=== PATIENT | male | born 1960 | race Caucasian/White ===

== ENCOUNTER 2017-02-03 12:04 | Emergency (ER) | payer OTHER ==
[2017-02-03 12:42] LABS: BASOPHILS % (AUTO) 0.3 %; EOSINOPHILS # (AUTO) 0.2 10^3/uL (0.0-0.7); EOSINOPHILS % (AUTO) 1.6 %; HCT - HEMATOCRIT 46.7 % (42.0-52.0); HGB - HEMOGLOBIN 15.8 g/dL (14.0-18.0); LYMPHOCYTES # (AUTO) 1.9 10^3/uL (1.5-3.5); LYMPHOCYTES % (AUTO) 19.2 %; MEAN CORPUSCULAR HEMOGLOBIN 28.4 pg (27.0-31.0); MEAN CORPUSCULAR HGB CONC 33.8 g/dL (32.0-36.0); MEAN CORPUSCULAR VOLUME 84.1 fL (80.0-94.0); MEAN PLATELET VOLUME 8.8 fL (7.4-11.4); MONOCYTES # (AUTO) 0.7 10^3/uL (0.0-1.0); MONOCYTES % (AUTO) 6.8 %; NEUTROPHILS # (AUTO) 7.3 10^3/uL (1.5-6.6); NEUTROPHILS % (AUTO) 72.1 %; RED BLOOD COUNT 5.55 10^6/uL (4.70-6.10); RED CELL DISTRIBUTION WIDTH 13.7 % (12.0-15.0); UNCORRECTED WHITE BLOOD COUNT 10.1 x10^3/uL; WHITE BLOOD COUNT 10.1 x10^3/uL (4.8-10.8)
[2017-02-03 12:52] LABS: ALBUMIN/GLOBULIN RATIO 1.4 (1.0-2.2); BILIRUBIN,TOTAL 1.2 mg/dL (0.2-1.0); POTASSIUM 3.8 mmol/L (3.5-5.0)
[2017-02-03] MEDS ORDERED: ASPIRIN CHEW 81 MG TABLET PO STA (12:58)
[2017-02-03] MEDS ORDERED: LIDOCAINE VISCOUS 2% 15 ML UDC MM STA (12:58)
[2017-02-03] MEDS ORDERED: MAG HYDROX/AL HYDROX/SIMETH 30 ML UDC PO STA (12:58)
[2017-02-03] MEDS ORDERED: LIDOCAINE VISCOUS 2% 15 ML UDC MM ONE (13:01)
[2017-02-03] MEDS ORDERED: MAG HYDROX/AL HYDROX/SIMETH 30 ML UDC ONE (13:01)
[2017-02-03] MEDS ORDERED: ASPIRIN CHEW 81 MG TABLET ONE (13:01)
--- NOTE | 2017-02-03 13:04 | ED Physician Documentation ---
PD HPI CHEST PAIN - Stated complaint Stated Complaint: CHEST PX - Chief complaint Chief Complaint: Cardiac - History obtained from History obtained from: Patient - History of Present Illness Timing - onset: Other (56-year-old gentleman with history of severe erosive esophagitis and hiatal hernia but no heart or lung disease presents with substernal burning chest pressure starting at 9 a.m. similar to prior episodes of GERD. It is not radiate but he has been sweaty a little nauseous with it. Somewhat atypically it did not resolve with Pepto-Bismol which usually helps with similar episodes. It is not exertional or positional. No pedal edema, calf pain, hemoptysis, recent travel.) Review of Systems Ten Systems: 10 systems reviewed and negative Constitutional: denies: Fever, Chills Nose: denies: Rhinorrhea / runny nose, Congestion GI: reports: Nausea. denies: Vomiting, Diarrhea : denies: Dysuria Musculoskeletal: denies: Neck pain PD PAST MEDICAL HISTORY - Past Medical History Cardiovascular: None Respiratory: None Endocrine/Autoimmune: None GI: GERD : None HEENT: None Psych: None Musculoskeletal: Osteoarthritis Derm: Rosacea - Past Surgical History Past Surgical History: Yes - Present Medications Home Medications: Ambulatory Orders Medication Instructions Recorded Confirmed Aspirin 650 mg PO DAILY 05/23/16 05/23/16 Calcium Carbonate [Tums (Calcium 1,000 mg PO ONCE 05/23/16 05/23/16 Carbonate 500mg)] raNITIdine [Zantac] 150 mg PO DAILY 05/23/16 05/23/16 - Allergies Allergies/Adverse Reactions: Allergies Allergy/AdvReac Type Severity Reaction Status Date / Time No Known Drug Allergies Allergy Verified 05/23/16 14:31 - Social History Does the pt smoke?: No Smoking Status: Former smoker Does the pt drink ETOH?: No Does the pt have substance abuse?: No - Family History Family history: reports: Non contributory - Immunizations Immunizations are current?: Yes PD ED PE NORMAL - Vitals Vital signs reviewed: Yes - General General: Alert and oriented X 3, No acute distress - HEENT HEENT: PERRL, EOMI - Neck Neck: Supple, no meningeal sign, No bony TTP - Cardiac Cardiac: RRR, No murmur - Respiratory Respiratory: No respiratory distress, Clear bilaterally - Abdomen Abdomen: Soft, Non tender - Back Back: No CVA TTP, No spinal TTP - Derm Derm: Normal color, Warm and dry - Extremities Extremities: No edema, No calf tenderness / cord - Neuro Neuro: Alert and oriented X 3, Normal speech - Psych Psych: Normal mood, Normal affect Results - Vitals Vitals: Vital Signs - 24 hr 02/03/17 02/03/17 02/03/17 12:06 13:38 15:10 Temperature 36.6 C Heart Rate 54 L 47 L 77 Respiratory 16 20 17 Rate Blood Pressure 124/82 H 113/79 129/89 H O2 Saturation 99 100 98 02/03/17 02/03/17 16:26 18:20 Temperature Heart Rate 81 68 Respiratory 16 14 Rate Blood Pressure 113/77 111/84 H O2 Saturation 97 97 Oxygen O2 Source Room air - EKG (time done) 1216 Rate: Rate (enter#) (48) Rhythm: Sinus bradycardia [place]: Normal Intervals: Normal OR QRS: Normal Ischemia: Normal ST segments Computer interpretation: Agree with computer - Labs Labs: Laboratory Tests 02/03/17 02/03/17 02/03/17 12:25 12:25 12:25 WBC 10.1 RBC 5.55 Hgb 15.8 Hct 46.7 MCV 84.1 MCH 28.4 MCHC 33.8 RDW 13.7 Plt Count 177 MPV 8.8 Neut # 7.3 H Lymph # 1.9 [place] # 0.7 Eos # 0.2 Baso # 0.0 Absolute Nucleated RBC 0.00 Nucleated RBCs 0.0 Sodium 138 Potassium 3.8 Chloride 105 Carbon Dioxide 27 Anion Gap 6.0 BUN 13 Creatinine 1.0 Estimated GFR (MDRD) 78 L Glucose 113 H Calcium 9.0 Total Bilirubin 1.2 H AST 38 ALT 32 Alkaline Phosphatase 71 Troponin I < 0.04 Total Protein 7.0 Albumin 4.1 Globulin 2.9 Albumin/Globulin Ratio 1.4 Lipase 24 02/03/17 02/03/17 14:33 16:57 WBC RBC Hgb Hct MCV MCH MCHC RDW Plt Count MPV Neut # Lymph # [place] # Eos # Baso # Absolute Nucleated RBC Nucleated RBCs Sodium Potassium Chloride Carbon Dioxide Anion Gap BUN Creatinine Estimated GFR (MDRD) Glucose Calcium Total Bilirubin AST ALT Alkaline Phosphatase Troponin I < 0.04 < 0.04 Total Protein Albumin Globulin Albumin/Globulin Ratio Lipase - Rads (name of study) 1v chest Radiology: See rad report (cardiomegaly, nad) CT Angio Chest/abd Radiology: EMP read contemporaneously (Negative) RUQ sono Radiology: EMP read contemporaneously (Mild gallbladder wall thickening without stones, fatty liver) PD MEDICAL DECISION MAKING - ED course ED course: 56-year-old gentleman with substernal chest pain reminiscent of prior GERD, he does have known significant hiatal hernia and history of esophagitis. Initial workup showed a nonischemic EKG and negative troponin. He had no relief with a GI cocktail. Troponin was repeated after 2 hours and was still undetectable. On reevaluation at that point I noted that he has a marfanoid body habitus with arachnodactyly and he is hyperflexible, the pain is atypical for dissection but this is still concerning of course. The angiograms were negative, his pain did finally resolve, he had an equivocal call right upper quadrant ultrasound but he was pain-free at that juncture. A light diet and followup for a HIDA scan were recommended. Departure - Departure Disposition: 01 Home, Self Care Clinical Impression: Thickening of wall of gallbladder Chest pain Qualifiers: Chest pain type: unspecified Qualified Code(s): R07.9 - Chest pain, unspecified Abdominal pain Qualifiers: Abdominal location: upper abdomen, unspecified Qualified Code(s): R10.10 - Upper abdominal pain, unspecified Condition: Good Record reviewed to determine appropriate education?: Yes Instructions: ED Diet Low Fat, ED Chest Pain Atypical Unkn Cause Comments: Return if pain recurs or for other new symptoms. Follow up with Dr. Sawant and discuss a HIDA scan, especially if you're having recurrent symptoms.
--- NOTE | 2017-02-03 13:45 | XRAY Preliminary Report ---
Exam: XR Chest 1 View IMPRESSION: Cardiomegaly, but no evidence of acute cardiopulmonary disease. [facility] SITE ID: [id number]
--- NOTE | 2017-02-03 13:47 | XRAY Report ---
EXAM: CHEST RADIOGRAPHY EXAM DATE: 02/03/2017 01:21 PM. CLINICAL HISTORY: Chest pain. COMPARISON: None. TECHNIQUE: 1 view. FINDINGS: Lungs/Pleura: Minimal linear scarring or atelectasis at the left base. No focal infiltrate, effusion, or pneumothorax. Mediastinum: Cardiomegaly. Other: None. IMPRESSION: Cardiomegaly, but no evidence of acute cardiopulmonary disease. [facility] Referring Provider Line: [phone] SITE ID: [id number]
[2017-02-03] MEDS ORDERED: IOPAMIDOL-300 100 ML VIAL IVP ONE (16:00)
--- NOTE | 2017-02-03 16:20 | CT Preliminary Report ---
Exam: CT Chest Angio (AORTA) IMPRESSION: No evidence of aortic dissection or aneurysm. No acute cardiopulmonary disease. [facility] SITE ID: [id number]
--- NOTE | 2017-02-03 16:23 | CT Report ---
EXAM: CT ANGIOGRAM CHEST EXAM DATE: 02/03/2017 04:05 PM. CLINICAL HISTORY: IV only, chest pain, marfanoid. COMPARISON: None. TECHNIQUE: Routine helical imaging was performed through the chest in the arterial phase. IV Contrast : 100 mL Isovue 300. Reconstructions: Coronal and sagittal 3-D MIP reconstructions.Sagittal and coron al. In accordance with CT protocol optimization, one or more of the following dose reduction techniques w ere utilized for this exam: automated exposure control, adjustment of mA and/or KV based on patient s ize, or use of iterative reconstructive technique. FINDINGS: Lungs/Pleura: Minimal dependent atelectasis. No effusion or pneumothorax. Mediastinum: Normal. No cardiac enlargement or adenopathy. Thoracic Aorta: Unremarkable. No aneurysm or dissection. Upper Abdomen: Please see separate CT. Other: None. IMPRESSION: No evidence of aortic dissection or aneurysm. No acute cardiopulmonary disease. [facility] Referring Provider Line: [phone] SITE ID: [id number]
--- NOTE | 2017-02-03 16:24 | CT Preliminary Report ---
Exam: CT Abdomen/Pelvis Angio IMPRESSION: Normal abdomen and pelvis CT angiogram. No aneurysm or dissection. [facility] SITE ID: [id number]
--- NOTE | 2017-02-03 16:26 | CT Report ---
EXAM: CT ANGIOGRAM ABDOMEN AND PELVIS WITH CONTRAST EXAM DATE: 02/03/2017 04:04 PM. CLINICAL HISTORY: IV only, chest pain, marfanoid. COMPARISONS: None. TECHNIQUE: Routine helical CT angiogram imaging was performed through the abdomen and pelvis in the a rterial phase. IV contrast: 100 mL Isovue-370. Enteric contrast: No. Reconstructions: Coronal, sagitt al, and 3D MIP reconstructions. In accordance with CT protocol optimization, one or more of the following dose reduction techniques w ere utilized for this exam: automated exposure control, adjustment of mA and/or KV based on patient s ize, or use of iterative reconstructive technique. FINDINGS: Vasculature: Normal. No aneurysm, dissection, or significant atherosclerotic disease of the abdominal aorta and iliac arteries. The visualized mesenteric and solid organ vascular structures are also wit hin normal limits. Lung Bases: Minimal atelectasis. Abdominal Solid Organs: Small cyst in the anterior liver. The spleen, pancreas, kidneys and adrenal g lands are unremarkable, allowing for phase of contrast enhancement. Peritoneal Cavity: Normal. No free fluid, free air, or acute inflammatory process. Pelvic Organs: Normal. The bladder and visualized pelvic organs are within normal limits. Bones: Degenerative changes. Other: None. IMPRESSION: Normal abdomen and pelvis CT angiogram. No aneurysm or dissection. [facility] Referring Provider Line: [phone] SITE ID: [id number]
[2017-02-03] MEDS ORDERED: CALCIUM CARBONATE CHEW 500 MG TABLET PO STA (17:00)
[2017-02-03] MEDS ORDERED: CALCIUM CARBONATE CHEW 500 MG TABLET ONE (17:01)
[2017-02-03 18:20] VITALS: BP 111/84
--- NOTE | 2017-02-03 18:32 | Ultrasound Preliminary Report ---
Exam: US Abdomen Limited IMPRESSION: 1. Mild circumferential gallbladder wall thickening without gallstones. Equivocal sonographic Hung sign. Chronic or early acute cholecystitis is not excluded. Correlate clinically. 2. Mildly fatty infiltrated liver. No mass. Liver cyst. 3. Normal common bile duct. 4. Pancreas obscured by bowel gas. [facility] SITE ID: [id number]
--- NOTE | 2017-02-03 19:05 | Ultrasound Report ---
EXAM: ABDOMEN ULTRASOUND LIMITED, RUQ EXAM DATE: 02/03/2017 06:01 PM. CLINICAL HISTORY: Abdominal pain. COMPARISON: 02/03/2017 CT angiogram of the chest, abdomen and pelvis. TECHNIQUE: Real-time scanning was performed with static images obtained. FINDINGS: Liver: Echogenic liver parenchyma. No mass or intrahepatic bile duct dilation. 1.4 cm left liver cyst . No concerning features. Right liver measures 17.6 cm. Main portal vein flow: Hepatopetal. Gallbladder: Circumferential gallbladder wall thickening. No stones. Equivocal sonographic Hung sig n. Biliary System: CBD measures 4.3 mm. No intrahepatic or extrahepatic ductal dilatation. Pancreas: Not well-seen. Right kidney: No hydronephrosis. Length measures 10.2 cm. Other: Study limited body body habitus. IMPRESSION: 1. Mild circumferential gallbladder wall thickening without gallstones. Equivocal sonographic Hung sign. Chronic or early acute cholecystitis is not excluded. Correlate clinically. 2. Mildly fatty infiltrated liver. No mass. Liver cyst. 3. Normal common bile duct. 4. Pancreas obscured by bowel gas. [facility] Referring Provider Line: [phone] SITE ID: [id number]
== END 2017-02-03 18:48 | disposition home or self-care (01) ==
LOC: ED 12:04
DX: K82.8 Other specified diseases of gallbladder (principal); R07.89 Other chest pain; R10.10 Upper abdominal pain, unspecified; K21.0 Gastro-esophageal reflux disease with esophagitis; K44.9 Diaphragmatic hernia without obstruction or gangrene; I51.7 Cardiomegaly; R00.1 Bradycardia, unspecified; Q87.43 Marfan syndrome with skeletal manifestation; Z87.891 Personal history of nicotine dependence
CPT/HCPCS: 36415; 71010; 71275; 74174; 76705; 80053; 83690; 84484; 85025; 93005; 93010; 99284; 99285; A9270; Q9967

== ENCOUNTER 2018-08-11 08:00 | Outpatient (CLI) | payer OTHER ==
[2018-08-11 12:55] LABS: BASOPHILS % (AUTO) 0.5 %; EOSINOPHILS # (AUTO) 0.2 10^3/uL (0.0-0.7); EOSINOPHILS % (AUTO) 2.7 %; HGB - HEMOGLOBIN 15.4 g/dL (14.0-18.0); LYMPHOCYTES # (AUTO) 1.7 10^3/uL (1.5-3.5); LYMPHOCYTES % (AUTO) 30.3 %; MEAN CORPUSCULAR HEMOGLOBIN 29.7 pg (27.0-31.0); MEAN CORPUSCULAR HGB CONC 34.7 g/dL (32.0-36.0); MEAN CORPUSCULAR VOLUME 85.6 fL (80.0-94.0); MEAN PLATELET VOLUME 9.6 fL (7.4-11.4); MONOCYTES # (AUTO) 0.5 10^3/uL (0.0-1.0); MONOCYTES % (AUTO) 8.4 %; NEUTROPHILS # (AUTO) 3.3 10^3/uL (1.5-6.6); NEUTROPHILS % (AUTO) 58.1 %; PLT - PLATELET COUNT 181 10^3/uL (130-450); RED BLOOD COUNT 5.17 10^6/uL (4.70-6.10); RED CELL DISTRIBUTION WIDTH 13.4 % (12.0-15.0); WHITE BLOOD COUNT 5.7 x10^3/uL (4.8-10.8)
[2018-08-11 13:48] LABS: ALBUMIN 4.2 g/dL (3.2-5.5); ALBUMIN/GLOBULIN RATIO 2.1 (1.0-2.2); ALKALINE PHOSPHATASE 70 IU/L (42-121); ALT ALANINE AMINOTRANSFERASE 21 IU/L (10-60); AST ASPARTATE AMINOTRANSFERASE 19 IU/L (10-42); BILIRUBIN,TOTAL 0.9 mg/dL (0.2-1.0); BUN - BLOOD UREA NITROGEN 13 mg/dL (6-20); CALCIUM 8.8 mg/dL (8.5-10.3); CARBON DIOXIDE - CO2 24 mmol/L (21-32); CHLORIDE 106 mmol/L (101-111); CHOL/HDL RATIO 4.5 (<5.0); CHOLESTEROL 205 mg/dL; GFR - MDRD 78 (>89); GLUCOSE 96 mg/dL (70-100); HDL CHOLESTEROL 46 mg/dL; LDL CHOLESTEROL,CALCULATED 148 mg/dL; LDL/HDL RATIO 3.2 (<3.6); SODIUM 136 mmol/L (135-145); TOTAL PROTEIN 6.2 g/dL (6.7-8.2); VLDL CHOLESTEROL 11 mg/dL
== END 2018-08-11 23:59 | disposition home or self-care (01) ==
LOC: LAB.WCP 08:00
PROVIDERS: ATTEND Family Medicine
DX: Z00.00 Encounter for general adult medical examination without abnormal findings (principal)
CPT/HCPCS: 36415; 80053; 80061; 83721; 84443; 85025

== ENCOUNTER 2018-08-14 08:00 | Outpatient (CLI) | payer OTHER | END 2018-08-14 23:59 | disposition home or self-care (01) | LOC: LAB.WCP 08:00 | PROVIDERS: ATTEND Family Medicine | DX: Z12.5 Encounter for screening for malignant neoplasm of prostate (principal) | CPT/HCPCS: 36415; 84153 ==

== ENCOUNTER 2018-12-16 07:23 | Day surgery (SDC) | payer OTHER ==
[~2018-12-16 07:23] MED LIST: BUPIVACAINE 0.25% PF 10 ML VIAL ONE; LIDOCAINE 1%-EPI 1:100000 30 ML MDV ONE
[2018-12-16] MEDS ORDERED: LACTATED RINGERS 1,000 ML IV ONE (07:28)
[2018-12-16] MEDS ORDERED: ceFAZolin 2 GM/50 ML 2 GM/50 ML BAG IV ONE (07:32)
--- NOTE | 2018-12-16 08:11 | ANESTHESIA ---
Pre-Anesthesia VS, & Labs - Diagnosis right cubital tunnel syndrome - Procedure right cubital tunnel syndrome Vital Signs: Temp Pulse Resp BP Pulse Ox 36.1 C L 76 16 136/78 H 97 12/16/18 07:42 12/16/18 07:42 12/16/18 07:42 12/16/18 07:42 12/16/18 07:42 Height 6 ft 4 in Weight (kg) 99 kg Body Mass Index 27.3 - NPO >8 hours Home Medications and Allergies Home Medications: Ambulatory Orders Acetaminophen [Tylenol] 650 mg PO Q6H PRN 12/10/18 Dexlansoprazole [Dexilant] 60 mg PO DAILY 12/10/18 Calcium Carbonate [Tums (Calcium Carbonate 500mg)] 1,000 mg PO ONCE 05/23/16 Acetaminophen [Tylenol] 650 mg PO Q6H PRN 12/10/18 Dexlansoprazole [Dexilant] 60 mg PO DAILY 12/10/18 Allergies/Adverse Reactions: Allergies Allergy/AdvReac Type Severity Reaction Status Date / Time omeprazole Allergy severe Verified 12/16/18 07:42 headaches Anes History & Medical History - Anesthetic History Anesthesia Complications: reports: No previous complications - Medical History Cardiovascular: reports: None Pulmonary: reports: None Gastrointestinal: reports: GERD, Hiatal hernia Urinary: reports: None Musculoskeletal: reports: Osteoarthritis Endocrine/Autoimmune: reports: None Skin: reports: Rosacea Smoking Status: Former smoker - Surgical History General: Colonoscopy, EGD Eyes Ears Nose Throat (EENT): Tonsil/Adenoidectomy Urologic: Testicular surgery Exam General: Alert Dental: WNL Mouth Opening: Greater than 4 Fingerbreadths Neck Mobility: Normal Mallampati classification: II Respiratory: Lungs clear Cardiovascular: Regular rate Plan Anesthesia Type: General Consent for Procedure(s) Verified and Reviewed: Yes Code Status: Attempt Resuscitation ASA classification: 2-Mild systemic disease Is this case an emergency?: No
[2018-12-16] MEDS ORDERED: LIDOCAINE 1%-EPI 1:100000 30 ML MDV SUBQ ONE ×2 (09:13)
[2018-12-16] MEDS ORDERED: BUPIVACAINE 0.25% PF 30 ML VIAL SUBQ ONE ×2 (09:13)
[2018-12-16] MEDS ORDERED: ACETAMINOPHEN 1,000 MG/100 ML 100 ML IV ONE (09:49)
[2018-12-16] MEDS ORDERED: DEXAMETHASONE 4 MG/ML VIAL IVP ONE (09:49)
[2018-12-16] MEDS ORDERED: PROPOFOL 200 MG/20 ML VIAL IVP ONE (09:49)
[2018-12-16] MEDS ORDERED: LIDOCAINE-PF 2% 10 ML AMP SUBQ ONE (09:49)
[2018-12-16] MEDS ORDERED: MIDAZOLAM 2 MG/2 ML VIAL IVP ONE (09:49)
[2018-12-16] MEDS ORDERED: ONDANSETRON 4 MG/2 ML VIAL IVP ONE (09:49)
[2018-12-16] MEDS ORDERED: fentaNYL 100 MCG/2 ML VIAL IVP ONE (09:49)
[2018-12-16] MEDS ORDERED: KETOROLAC 30 MG/ML VIAL IVP ONE (09:49)
[2018-12-16] MEDS ORDERED: oxyCODONE 5 MG TABLET PO PRN (10:11)
[2018-12-16] MEDS ORDERED: oxyCODONE 5 MG TABLET ONE (10:52)
[2018-12-16 11:18] VITALS: BP 111/88
--- NOTE | 2018-12-16 14:00 | OPERATIVE REPORT ---
DATE OF SERVICE: 12/16/2018 Physician: Kristen Arreola MD PREOPERATIVE DIAGNOSIS: Right cubital tunnel syndrome. POSTOPERATIVE DIAGNOSIS: Right cubital tunnel syndrome. PROCEDURE PERFORMED: Right ulnar nerve subcutaneous transposition. SURGEON: Kristen Arreola MD. ANESTHESIA: General by Whitley Obrien CRNA INDICATIONS FOR SURGERY: Patient is a 58-year-old male with a remote history of elbow injury and fra cture, and more recently, having the onset over the last couple of years of cubital tunnel syndrome i n that same arm. He has failed nonoperative management and recommendation is made for subcutaneous t ransposition. FINDINGS AT SURGERY: Patient's nerve was found to have a definite constriction around the cubital tu nnel, and there was hypersensitivity of the nerve. Upon transposition, the patient's nerve had a smo oth pathway that was spacious enough and no kinking in the nerve or constriction. DESCRIPTION OF OPERATIVE PROCEDURE: The patient was taken to the operating room and was given a gene ral anesthetic. He was supine. He was rolled up slightly with a bolster under his left arm to allow him to lie more comfortably with his arm extended out, tourniquet high on the arm, elbow was shaved and prepped in standard fashion. Surgical timeout was held. A 2-1/2 inch incision was marked directly over the medial epicondyle after this was infiltrated with a combination of 0.25% Marcaine with epinephrine and 1% lidocaine plain. Following this, an incision was made through skin only and a careful dissection made down to the common flexor origin at the med ial epicondyle. Behind this area, careful spreading was done proximal to the cubital tunnel and the ulnar nerve was encountered and carefully handled by placing a vessel loop around it, dissecting prox imally to ensure there was no entrapment up into the intermuscular septum, and then dissecting distal down to the epicondyle, ensuring there was an adequate pathway anteriorly for positioning of the ner ve. The nerve was freed up from behind the elbow and placed anteriorly, and dissection carried out distal ly to ensure there was no kinking of the nerve as it re-entered the forearm musculature with a slight fascial release to avoid this kinking effect in flexion. All branches distally were preserved, and the nerve and wound were irrigated thoroughly. At the conclusion, a small flap of fat was tacked daniel n from the anterior exposure to prevent resubluxation of the nerve posteriorly. Multiple Vicryl sutu res were positioned in this, and this left a position for the nerve and for my small finger to pass t hrough. Subcutaneous tissue was then closed with interrupted 3-0 Vicryl and the skin with Monocryl i n a running subcuticular fashion. The wound was sterilely dressed with Xeroform, 4 x 4's and abundan t cast padding, placing a posterior arm splint with the elbow at 90 degrees. Patient was then taken to recovery room in stable condition. ESTIMATED BLOOD LOSS FOR THE PROCEDURE: Minimal. COMPLICATIONS: None. COUNTS: Sponge and needle counts correct. TD: 12/16/2018 11:54
== END 2018-12-16 07:24 | disposition home or self-care (01) ==
LOC: SDS 07:23
PROVIDERS: ATTEND Orthopaedic Surgery
PROC: 01S40ZZ Reposition Ulnar Nerve, Open Approach (ICD-10-PCS; principal; 2018-12-16 08:30)
DX: G56.21 Lesion of ulnar nerve, right upper limb (principal); K21.9 Gastro-esophageal reflux disease without esophagitis; K44.9 Diaphragmatic hernia without obstruction or gangrene; Z87.891 Personal history of nicotine dependence; M17.0 Bilateral primary osteoarthritis of knee; Z87.81 Personal history of (healed) traumatic fracture
CPT/HCPCS: 64718; A9270; J0131; J0690; J7120

== ENCOUNTER 2019-01-18 18:36 | Emergency (ER) | payer OTHER ==
[2019-01-18] MEDS ORDERED: BUPIVACAINE 0.5% PF 10 ML VIAL SUBQ STA (19:09)
--- NOTE | 2019-01-18 19:13 | XRAY Report ---
Reason: saw vs middle finger Procedure Date: 01/18/2019 Accession Number: [id number] / [id number] Procedure: XR - Finger(s) LT CPT Code: FULL RESULT: EXAM: LEFT THIRD DIGIT RADIOGRAPHY EXAM DATE: 01/18/2019 07:08 PM. CLINICAL HISTORY: Saw vs middle finger. COMPARISON: None. TECHNIQUE: 3 views. FINDINGS: Bones: There is comminuted fracture through the tip of the third distal phalanx. Joints: Normal. No subluxations. Soft Tissues: Normal. No soft tissue swelling. IMPRESSION: Comminuted fracture through the tip of the third distal phalanx. No unexpected radiopaque foreign body. [facility]
[2019-01-18] MEDS ORDERED: TETANUS/DIPHTHERIA/PERTUSSIS 0.5 ML SYRINGE IM ONE (20:22)
[2019-01-18] MEDS ORDERED: ceFAZolin 1 GM VIAL IM STA (20:22)
[2019-01-18] MEDS ORDERED: BACITRACIN OINT TOP ONE (20:27)
--- NOTE | 2019-01-18 20:27 | ED Physician Documentation ---
PD HPI UPPER EXT INJURY - Stated complaint Stated Complaint: LT HAND INJ - Chief complaint Chief Complaint: Laceration - History obtained from History obtained from: Patient - History of Present Illness Location: Left, Finger (3rd digit) Type of injury: Laceration (circular saw) Where injury occurred: Home Timing - onset: How many hours ago (1) Timing - duration: Hours (1) Timing - details: Abrupt onset Pain level max: 8 Pain level now: 8 Improved by: Rest, Ice, Immobilization Worsened by: Moving, Palpating Associated symptoms: No: Weakness, Numbness, Tingling Contributing factors: No: Anticoagulated Recently seen: Not recently seen - Additonal information Additional information: unknown last Td. pt is right handed Review of Systems Constitutional: denies: Fever, Chills Throat: denies: Sore throat Cardiac: denies: Chest pain / pressure Respiratory: denies: Cough GI: denies: Abdominal Pain, Nausea, Vomiting, Diarrhea Skin: denies: Rash Musculoskeletal: denies: Neck pain, Back pain Neurologic: denies: Headache PD PAST MEDICAL HISTORY - Past Medical History Cardiovascular: None Respiratory: None Endocrine/Autoimmune: None GI: GERD, Hiatal hernia : None HEENT: Chronic vision loss, Other Psych: None Musculoskeletal: Osteoarthritis Derm: Rosacea - Past Surgical History Past Surgical History: Yes General: Colonoscopy, EGD HEENT: Tonsil/Adenoidectomy - Present Medications Home Medications: Ambulatory Orders Medication Instructions Recorded Confirmed Calcium Carbonate [Tums (Calcium 1,000 mg PO ONCE 05/23/16 12/16/18 Carbonate 500mg)] Acetaminophen [Tylenol] 650 mg PO Q6H PRN 12/10/18 12/16/18 Dexlansoprazole [Dexilant] 60 mg PO DAILY 12/10/18 12/16/18 Cephalexin [Keflex] 500 mg PO Q6H #28 capsule 01/18/19 Hydrocodone/Acetaminophen 1 - 2 each PO Q6H PRN #10 tablet 01/18/19 [Hydrocodon-Acetaminophen 5-325] - Allergies Allergies/Adverse Reactions: Allergies Allergy/AdvReac Type Severity Reaction Status Date / Time omeprazole Allergy severe Verified 12/16/18 07:42 headaches - Social History Does the pt smoke?: No Smoking Status: Former smoker Does the pt drink ETOH?: No Does the pt have substance abuse?: No - Immunizations Immunizations are current?: Yes PD ED PE NORMAL - Vitals Vital signs reviewed: Yes - General General: Alert and oriented X 3, No acute distress - HEENT HEENT: Moist mucous membranes - Derm Derm: Warm and dry - Extremities Extremities: Other (L 3rd digit, Deep flap laceration to the pad of the left third digit. Distal phalanx. Neurovascular intact. Nail intact) - Neuro Neuro: Alert and oriented X 3 Results - Vitals Vitals: Vital Signs - 24 hr 01/18/19 01/18/19 18:38 20:52 Temperature 36.3 C L Heart Rate 74 78 Respiratory 18 18 Rate Blood Pressure 146/102 H 137/78 H O2 Saturation 96 99 Oxygen O2 Source Room air - Rads (name of study) L finger xray Radiology: Prelim report reviewed, EMP read contemporaneously, See rad report (Comminuted fracture through the tip of the third distal phalanx. No unexpected radiopaque foreign body. ) Procedures - Laceration (location) L 3rd digit Length in cm: 2 Wound type: Curved, Stellate, Irregular, Flap, Into subcut fat, Contaminated Neurovascular status: Sensory intact, Motor intact, Vascular intact Tendon involvement: Tendon intact Anesthesia: Lidocaine 2% Wound Preparation: Irrigated copiously NS (500ml), Wound explored, To the base. No: FB identified, FB removed Skin layer closure: Nylon, Interrupted, Size #-0 - enter number (4) Other: Patient tolerated well, No complications, Neurovascular intact, Tetanus booster given (tdap) Complexity: Simple PD MEDICAL DECISION MAKING - ED course Complexity details: reviewed results, re-evaluated patient, considered differential, d/w patient ED course: 58-year-old male with an open distal tuft fracture from a circular saw. Irrigated very well, closed with sutures. Given Ancef IM. Will place on Keflex for home. We will have him follow-up with orthopedics for wound checks. Patient counseled regarding signs and symptoms for which I believe and urgent re-evaluation would be necessary. Patient with good understanding of and agreement to plan and is comfortable going home at this time This document was made in part using voice recognition software. While efforts are made to proofread this document, sound alike and grammatical errors may occur. No nerve or tendon injury Departure - Departure Disposition: 01 Home, Self Care Clinical Impression: Laceration of left index finger Qualifiers: Encounter type: initial encounter Damage to nail status: without damage Foreign body presence: without foreign body Qualified Code(s): S61.211A - Laceration without foreign body of left index finger without damage to nail, initial encounter Fracture, finger, distal phalanx, open Qualifiers: Encounter type: initial encounter Finger: middle finger Fracture alignment: displaced Laterality: left Qualified Code(s): S62.633B - Displaced fracture of distal phalanx of left middle finger, initial encounter for open fracture Condition: Good Instructions: ED Fx Finger Open, ED Laceration Hand Follow-Up: Rebel Sawant MD [Primary Care Provider] - [facility] [Provider Group] - Within 1 week Prescriptions: Cephalexin [Keflex] 500 mg PO Q6H #28 capsule Hydrocodone/Acetaminophen [Hydrocodon-Acetaminophen 5-325] 1 - 2 each PO Q6H PRN #10 tablet PRN Reason: pain Comments: Return if you worsen. Follow-up with your doctor closely for further care. You should follow-up with orthopedics within the next week to ensure that this is healing correctly. Take all antibiotics until gone. Do not drink alcohol or drive while on narcotic pain medicine. Note that many narcotic pain relievers also contain tylenol/acetaminophen. Please ensure that your total dose of acetaminophen from all sources does not exceed 3 grams (3000mg) per day. You may constipated on this medication, take a stool softener such as "Colace" twice a day while you are on it. Also recommend a [id number] laxative such as senna or MiraLAX any day that you do not have a bowel movement. If you received narcotic pain medication in the emergency department, do not drive or operate machinery for the next 24 hours. Discharge Date/Time: 01/18/19 20:52
[2019-01-18 20:52] VITALS: BP 137/78
== END 2019-01-18 20:52 | disposition home or self-care (01) ==
LOC: ED 18:36
DX: S61.213A Laceration without foreign body of left middle finger without damage to nail, initial encounter (principal); S62.633A Displaced fracture of distal phalanx of left middle finger, initial encounter for closed fracture; W29.8XXA Contact with other powered hand tools and household machinery, initial encounter; Z87.891 Personal history of nicotine dependence
CPT/HCPCS: 12001; 73140; 90471; 90715; 96372; 99283; A9270

== ENCOUNTER 2021-11-08 07:44 | Outpatient (CLI) | payer OTHER ==
[2021-11-08 12:33] LABS: BASOPHILS % (AUTO) 0.5 %; EOSINOPHILS # (AUTO) 0.1 10^3/uL (0.0-0.7); EOSINOPHILS % (AUTO) 2.4 %; HCT - HEMATOCRIT 46.3 % (42.0-52.0); HGB - HEMOGLOBIN 15.4 g/dL (14.0-18.0); LYMPHOCYTES # (AUTO) 2.5 10^3/uL (1.5-3.5); LYMPHOCYTES % (AUTO) 44.3 %; MEAN CORPUSCULAR HEMOGLOBIN 28.5 pg (27.0-31.0); MEAN CORPUSCULAR HGB CONC 33.3 g/dL (32.0-36.0); MEAN CORPUSCULAR VOLUME 85.6 fL (80.0-94.0); MEAN PLATELET VOLUME 10.8 fL (7.4-11.4); MONOCYTES # (AUTO) 0.5 10^3/uL (0.0-1.0); MONOCYTES % (AUTO) 8.7 %; NEUTROPHILS # (AUTO) 2.4 10^3/uL (1.5-6.6); NEUTROPHILS % (AUTO) 43.9 %; PLT - PLATELET COUNT 193 10^3/uL (130-450); RED BLOOD COUNT 5.41 10^6/uL (4.70-6.10); WHITE BLOOD COUNT 5.5 x10^3/uL (4.8-10.8)
[2021-11-08 12:55] LABS: ALBUMIN 4.1 g/dL (3.2-5.5); ALBUMIN/GLOBULIN RATIO 1.6 (1.0-2.2); ALKALINE PHOSPHATASE 58 IU/L (42-121); ALT ALANINE AMINOTRANSFERASE 14 IU/L (10-60); AST ASPARTATE AMINOTRANSFERASE 18 IU/L (10-42); BILIRUBIN,TOTAL 0.8 mg/dL (0.2-1.0); BUN - BLOOD UREA NITROGEN 10 mg/dL (6-20); CALCIUM 9.1 mg/dL (8.5-10.3); CARBON DIOXIDE - CO2 27 mmol/L (21-32); CHLORIDE 105 mmol/L (101-111); CHOL/HDL RATIO 3.8 (<5.0); CHOLESTEROL 183 mg/dL; CREATININE 1.1 mg/dL (0.6-1.2); GFR - MDRD 69 (>89); GLUCOSE 93 mg/dL (70-100); HDL CHOLESTEROL 48 mg/dL; LDL CHOLESTEROL,CALCULATED 119 mg/dL; LDL/HDL RATIO 2.5 (<3.6); POTASSIUM 4.1 mmol/L (3.5-5.0); SODIUM 139 mmol/L (135-145); TOTAL PROTEIN 6.7 g/dL (6.7-8.2); TRIGLYCERIDES 79 mg/dL; VLDL CHOLESTEROL 16 mg/dL
[2021-11-08 13:01] LABS: THYROID STIMULATING HORMONE 1.21 uIU/mL (0.34-5.60)
== END 2021-11-08 07:45 | disposition home or self-care (01) ==
LOC: LAB.N 07:44
PROVIDERS: ATTEND Nurse Practitioner Family
DX: E78.5 Hyperlipidemia, unspecified (principal); Z13.1 Encounter for screening for diabetes mellitus; Z12.5 Encounter for screening for malignant neoplasm of prostate; Z13.29 Encounter for screening for other suspected endocrine disorder; Z13.6 Encounter for screening for cardiovascular disorders
CPT/HCPCS: 36415; 80053; 80061; 83721; 84153; 84443; 85025

== ENCOUNTER 2021-12-05 10:44 | Outpatient (CLI) | payer OTHER ==
--- NOTE | 2021-12-05 11:37 | DEXA Report ---
PROCEDURE: Dexa Spine and/or Hip INDICATIONS: SCREENING FOR OSTEOPOROSIS TECHNIQUE: Dual energy x-ray absorptiometry (DXA) was performed on a [employer] System. Regions measur ed are the AP Spine, femoral neck, and if needed forearm. COMPARISON: None. FINDINGS: Lumbar Spine: Bone Mineral Density 1.108 g/cm/cm,T score -0.9, normal Left Hip: Bone Mineral Density 0.983 g/cm/cm,T score -0.8, normal Left Femoral Neck: Bone Mineral Density 0.887 g/cm/cm, T score -1.4, osteopenia (T score greater or equal to -1.0: NORMAL) (T score from -1.1 to -2.4: OSTEOPENIA) (T score less than or equal to -2.5 to: OSTEOPOROSIS) Impression: Bone mineral density as detailed above. Patients with diagnosis of osteoporosis or osteopenia should have regular bone mineral density assess ment. For those eligible for Medicare, routine testing is allowed once every 2 years. Testing frequ ency can be increased for patients who have rapidly progressing disease or for those who are receivin g medical therapy to restore bone mass. Reviewed by: Ez Rubi MD on 12/05/2021 11:36 AM PDT Approved by: Ez Rubi MD on 12/05/2021 11:36 AM PDT Station ID: [id number]
== END 2021-12-05 10:45 | disposition home or self-care (01) ==
LOC: DI 10:44
PROVIDERS: ATTEND Nurse Practitioner Family
DX: Z13.820 Encounter for screening for osteoporosis (principal); M85.88 Other specified disorders of bone density and structure, other site; Z79.899 Other long term (current) drug therapy

== ENCOUNTER 2021-12-06 08:31 | Day surgery (SDC) | payer OTHER ==
[2021-12-06] MEDS ORDERED: fentaNYL 100 MCG/2 ML VIAL ONE (08:50)
[2021-12-06] MEDS ORDERED: MIDAZOLAM 2 MG/2 ML VIAL ONE (08:50)
[2021-12-06] MEDS ORDERED: LACTATED RINGERS 1,000 ML IV ONE ×2 (09:00→10:18)
--- NOTE | 2021-12-06 09:10 | ANESTHESIA ---
Pre-Anesthesia VS, & Labs - Diagnosis GERD - Procedure EGD Vital Signs: Temp Pulse Resp BP Pulse Ox 36.4 C L 68 18 139/84 H 96 12/06/21 08:46 12/06/21 08:46 12/06/21 08:46 12/06/21 08:46 12/06/21 08:46 Height: 6 ft 3 in Weight (kg): 101.1 kg Body Mass Index: 27.8 BMI Classification: Overweight - NPO >8 hours Home Medications and Allergies Calcium Carbonate [Tums (Calcium Carbonate 500mg)] 1,000 mg PO ONCE 05/23/16 Acetaminophen [Tylenol] 650 mg PO Q6H PRN 12/10/18 Dexlansoprazole [Dexilant] 60 mg PO DAILY 12/10/18 Omeprazole Magnesium 1 cap PO DAILY 12/05/21 Anes History & Medical History - Anesthetic History Anesthesia Complications: reports: No previous complications - Medical History Cardiovascular: reports: None Pulmonary: reports: None Gastrointestinal: reports: GERD, Hiatal hernia Urinary: reports: None Musculoskeletal: reports: Osteoarthritis Endocrine/Autoimmune: reports: None Skin: reports: Rosacea Smoking Status: Former smoker - Surgical History General: reports: Colonoscopy, EGD Eyes Ears Nose Throat (EENT): reports: Tonsil/Adenoidectomy Urologic: reports: Testicular surgery Neurologic: reports: Other Exam General: Alert, Oriented x3 Dental: WNL Mouth Opening: Greater than 4 Fingerbreadths Neck Mobility: Normal Mallampati classification: I Respiratory: Lungs clear Cardiovascular: Regular rate, Normal S1, Normal S2 Plan Anesthesia Type: Total IV Consent for Procedure(s) Verified and Reviewed: Yes Code Status: Attempt Resuscitation ASA classification: 2-Mild systemic disease Is this case an emergency?: No
[2021-12-06] MEDS ORDERED: PROPOFOL 200 MG/20 ML VIAL IVP ONE (09:41)
--- NOTE | 2021-12-06 10:40 | ANESTHESIA POST OP EVALUATION ---
Anesthesia Post Eval - Post Anesthesia Eval Vitals: Last Vital Signs Temp 36.4 C L 12/06/21 10:16 Pulse 83 12/06/21 10:34 Resp 18 12/06/21 10:34 BP 109/81 H 12/06/21 10:34 Pulse Ox 96 12/06/21 10:34 CV Function Including HR & BP: Stable Pain Control: Satisfactory Nausea & Vomiting: Negative Mental Status: Baseline Respiratory Status: Airway Patent Hydration Status: Satisfactory Anesthesia Complications: None
[2021-12-06 10:52] VITALS: BP 121/68
== END 2021-12-06 08:32 | disposition home or self-care (01) ==
LOC: SDS 08:31
PROVIDERS: ATTEND Surgery
DX: K21.9 Gastro-esophageal reflux disease without esophagitis (principal); R13.10 Dysphagia, unspecified; Z87.19 Personal history of other diseases of the digestive system; K44.9 Diaphragmatic hernia without obstruction or gangrene; Z87.891 Personal history of nicotine dependence
CPT/HCPCS: 43235; J7120

== ENCOUNTER 2022-06-19 12:11 | Outpatient (CLI) | payer OTHER ==
--- NOTE | 2022-06-20 19:10 | CT Report ---
PROCEDURE: CHEST WO INDICATIONS: Paraesophageal hernia. TECHNIQUE: Noncontrast 1mm axial images were acquired from the pulmonary apices to the posterior costophrenic an gles. Axial 5 mm soft tissue kernel reconstructions were performed as well as 8 mm axial MIP and cor onal and sagittal 5 mm reformations. For radiation dose reduction, the following was used: automate d exposure control, adjustment of mA and/or kV according to patient size. COMPARISON: 02/03/2017 CT abdomen. FINDINGS: Image quality: Excellent. Lungs and pleura: No acute air space opacities. No pleural effusions or pneumothorax. Central and peripheral airways are patent and normal in caliber. Mediastinum: Heart size is normal. No pericardial effusion. No mediastinal adenopathy by size crit eria. Thoracic aorta and central pulmonary arteries are normal in size. Esophagus is normal in sanjeev dominik. Small hiatal hernia. Bones and chest wall: No suspicious bony lesions. No vertebral body compression fractures. No axil erlinda or supraclavicular adenopathy by size criteria. The thyroid is normal in size and there are no incidental findings. Abdomen: No acute finding. Gallbladder sludge. IMPRESSION: Small type III hiatal hernia (mixed sliding and paraesophageal). Gallbladder sludge. Reviewed by: Tyrell Hdz MD on 06/20/2022 7:09 PM PDT Approved by: Tyrell Hdz MD on 06/20/2022 7:09 PM PDT Station ID: [id number]
== END 2022-06-19 12:12 | disposition home or self-care (01) ==
LOC: DI 12:11
PROVIDERS: ATTEND Surgery
DX: K44.9 Diaphragmatic hernia without obstruction or gangrene (principal)

== ENCOUNTER 2023-03-13 08:15 | Day surgery (SDC) | payer OTHER ==
[2023-03-13] MEDS ORDERED: LACTATED RINGERS 1,000 ML IV ONE ×2 (08:46→10:43)
[2023-03-13] MEDS ORDERED: PROPOFOL 500 MG/50 ML 0 MG/0 ML VIAL ONE (08:50)
--- NOTE | 2023-03-13 09:00 | ANESTHESIA ---
Pre-Anesthesia VS, & Labs - Diagnosis GERD - Procedure EGD Vital Signs: Temp Pulse Resp BP Pulse Ox O2 Flow Rate 36.4 C L 86 12 132/101 H 97 03/13/23 08:41 03/13/23 08:41 03/13/23 08:41 03/13/23 08:41 03/13/23 08:41 Height: 6 ft 4 in Weight (kg): 96 kg Body Mass Index: 25.7 BMI Classification: Overweight - NPO >8 hours - Lab Results Lab results reviewed: Yes Home Medications and Allergies Home Medications: Ambulatory Orders Simethicone [Gas Relief] 80 mg PO DAILY 03/13/23 Calcium Carbonate [Tums (Calcium Carbonate 500mg)] 1,000 mg PO ONCE 05/23/16 Omeprazole Magnesium 1 cap PO DAILY 12/05/21 Simethicone [Gas Relief] 80 mg PO DAILY 03/13/23 Allergies/Adverse Reactions: Allergies Allergy/AdvReac Type Severity Reaction Status Date / Time No Known Drug Allergies Allergy Verified 12/06/21 09:51 Anes History & Medical History - Anesthetic History Anesthesia Complications: reports: No previous complications Family history of Anesthesia Complications: Denies Family history of Malignant Hyperthermia: Denies - Medical History Cardiovascular: reports: None, Other (occasional PVC, EKG this am for chest pain (frequent gerd symptom).) Pulmonary: reports: None Gastrointestinal: reports: GERD, Hiatal hernia Urinary: reports: None Musculoskeletal: reports: Osteoarthritis Endocrine/Autoimmune: reports: None Skin: reports: Rosacea Smoking Status: Former smoker - Surgical History General: reports: Colonoscopy, EGD Eyes Ears Nose Throat (EENT): reports: Tonsil/Adenoidectomy Urologic: reports: Testicular surgery Exam General: Alert, Oriented x3, Cooperative Dental: WNL Mouth Opening: Greater than 4 Fingerbreadths Neck Mobility: Normal Mallampati classification: II Thyromental Distance: 4-6 cm Respiratory: Lungs clear, Normal breath sounds, No respiratory distress Cardiovascular: Regular rate Neurological: Normal speech Mental/Cognitive Status: Alert/Oriented X3, Normal for patient Plan Anesthesia Type: Total IV Consent for Procedure(s) Verified and Reviewed: Yes Code Status: Attempt Resuscitation ASA classification: 2-Mild systemic disease Is this case an emergency?: No
[2023-03-13] MEDS ORDERED: PROPOFOL 200 MG/20 ML VIAL IVP ONE ×2 (09:32→10:20)
[2023-03-13] MEDS ORDERED: LIDOCAINE-MPF 2% 5 ML VIAL ONE (09:33)
[2023-03-13] MEDS ORDERED: MIDAZOLAM 2 MG/2 ML VIAL ONE (09:33)
[2023-03-13] MEDS ORDERED: BENZOCAINE/TETRACAINE/BUTAMBEN 20 GM TOP ONE (10:01)
[2023-03-13] MEDS ORDERED: GLYCOPYRROLATE 1 MG/5 ML VIAL ONE (10:07)
[2023-03-13] MEDS ORDERED: SODIUM CHLORIDE FLUSH 0.9% 10 ML SYRINGE IVP ONE (10:09)
[2023-03-13] MEDS ORDERED: LACTATED RINGERS 200 ML IV ONE (10:25)
[2023-03-13 11:31] VITALS: BP 106/83
--- NOTE | 2023-03-13 11:55 | ANESTHESIA POST OP EVALUATION ---
Anesthesia Post Eval - Post Anesthesia Eval Vitals: Last Vital Signs Temp 0 C L 03/13/23 11:26 Pulse 74 03/13/23 11:26 Resp 16 03/13/23 11:26 BP 106/83 H 03/13/23 11:26 Pulse Ox 96 03/13/23 11:26 O2 Flow Rate CV Function Including HR & BP: Stable Pain Control: Satisfactory Nausea & Vomiting: Negative Mental Status: Baseline Respiratory Status: Airway Patent Hydration Status: Satisfactory Anesthesia Complications: None
== END 2023-03-13 08:16 | disposition home or self-care (01) ==
LOC: SDS 08:15
PROVIDERS: ATTEND Surgery
PROC: 0DB48ZX Excision of Esophagogastric Junction, Via Natural or Artificial Opening Endoscopic, Diagnostic (ICD-10-PCS; principal; 2023-03-13 09:30)
DX: K21.9 Gastro-esophageal reflux disease without esophagitis (principal); Z87.19 Personal history of other diseases of the digestive system; R07.9 Chest pain, unspecified; Z87.891 Personal history of nicotine dependence
CPT/HCPCS: 43239; 93005; A9270; J7120